=== PATIENT | female | born 1995 | race American Indian/Alaskan Native ===

== ENCOUNTER 2017-11-19 00:31 | Emergency (ER) | payer BC ==
[2017-11-19 00:31] VITALS: BMI 36.3
[2017-11-19 01:37] VITALS: BP 119/59; PULSE 100; RESP 16; TEMP 98.2; O2SAT 100
[2017-11-19] MEDS ORDERED: guaiFENesin 600 mg ER Tab PO STA (01:45)
--- NOTE | 2017-11-19 02:25 | ED PDOC ---
HPI: CCC, URI, Sore Throat Time Seen by Provider: 11/19/17 01:35 Chief Complaint (Nursing): Cough, Cold, Congestion Chief Complaint (Provider): Cough History Per: Patient History/Exam Limitations: no limitations Have you had recent travel within the past 21 days to any of the following countries: [place], [place], [place] or [place]?: No Onset/Duration Of Symptoms: Days Associated Symptoms: Cough, Sputum Additional History Per: Family Additional Complaint(s): 22yo female, presents to ED with complaints of cough. Patient states she got her flu shot yesterday and had episodes of coughing at home with associated palpitations. Patient's mother was concerned due to her symptoms and brought the patient in for evaluation. Patient is currently asymptomatic upon arrival; she reports there is a lot of mucus that she feels she cannot expectorate. She deneis any associated fever or chills. Patient has no other medical complaints. Past Medical History Reviewed: Historical Data, Nursing Documentation, Vital Signs Vital Signs: Last Vital Signs Temp 98.2 F 11/19/17 01:33 Pulse 100 H 11/19/17 01:33 Resp 16 11/19/17 01:33 BP 119/59 L 11/19/17 01:33 Pulse Ox 100 11/19/17 02:40 - Medical History PMH: Anxiety, Migraine Denies: Depression, Chronic Kidney Disease - Surgical History Surgical History: No Surg Hx - Family History Family History: States: No Known Family Hx - Living Arrangements Living Arrangements: With Family - Immunization History Hx Influenza Vaccination: (not sure) Hx Pneumococcal Vaccination: No - Home Medications Home Medications: Ambulatory Orders Medication Instructions Recorded Ciprofloxacin 0.3% [Ciloxan 0.3% 2 drop OS Q3H #1 bottle 04/13/17 Ophth SOLN] Guaifenesin [Mucinex] 600 mg PO BID #12 tab.er.12h 11/19/17 - Allergies Allergies/Adverse Reactions: Allergies Allergy/AdvReac Type Severity Reaction Status Date / Time No Known Allergies Allergy Verified 04/13/17 19:06 Review of Systems ROS Statement: Except As Marked, All Systems Reviewed And Found Negative Constitutional: Negative for: Fever, Chills Cardiovascular: Positive for: Palpitations Respiratory: Positive for: Cough Physical Exam - Reviewed Nursing Documentation Reviewed: Yes Vital Signs Reviewed: Yes - Physical Exam Appears: Positive for: Non-toxic, No Acute Distress Head Exam: Positive for: ATRAUMATIC, NORMAL INSPECTION, NORMOCEPHALIC Skin: Positive for: Normal Color, Warm Eye Exam: Positive for: Normal appearance Neck: Positive for: Supple Cardiovascular/Chest: Positive for: Regular Rate, Rhythm Respiratory: Positive for: Normal Breath Sounds. Negative for: Respiratory Distress Neurologic/Psych: Positive for: Alert, Oriented - ECG O2 Sat by Pulse Oximetry: 100 (RA) Pulse Ox Interpretation: Normal Medical Decision Making Medical Decision Making: Impression: URI vs. Influenza Plan: -- Rapid flu -- Mucinex 600 mg PO Time: 226 Serology reports negative for influenza Time: 238 Upon re-evaluation, patient reports feeling much better. Patient informed of serology findings. Patient stable for discharge home. Scribe Attestation: Documented by Andreina Vivas, acting as a scribe for Josiah Beard MD Provider Scribe Attestation: All medical record entries made by the Scribe were at my direction and personally dictated by me. I have reviewed the chart and agree that the record accurately reflects my personal performance of the history, physical exam, medical decision making, and the department course for this patient. I have also personally directed, reviewed, and agree with the discharge instructions and disposition. Disposition - Clinical Impression Clinical Impression: Cough - Disposition Referrals: Deb Valle DO [[facility]] - Disposition: Routine/Home Disposition Time: 02:40 Condition: IMPROVED Prescriptions: Guaifenesin [Mucinex] 600 mg PO BID #12 tab.er.12h Instructions: Cold Symptoms (ED) Forms: [employer] ([place])
== END 2017-11-19 02:37 | disposition home or self-care (01) ==
LOC: H.ER 00:31
DX: J06.9 Acute upper respiratory infection, unspecified (principal); F41.9 Anxiety disorder, unspecified